=== PATIENT | male | born 1990 | race Caucasian/White ===

== ENCOUNTER 2021-08-20 00:05 | Emergency (ER) | payer MEDICAID ==
[~2021-08-20] VITALS: Ht 172.7 cm; Wt 65.8 kg
[2021-08-20 00:11] VITALS: BP 149/91
--- NOTE | 2021-08-20 00:17 | NUR ---
PATIENT TO [facility] AMBULATORY
--- NOTE | 2021-08-20 01:09 | NUR ---
Nathaniel bond in [facility] - 08/20/21 at [address] Young examining patient.
--- NOTE | 2021-08-20 01:12 | NUR ---
PATIENT CALLED -- NO ANSWER AT THIS TIME
--- NOTE | 2021-08-20 01:12 | NUR ---
PATIENT LEFT WITHOUT BEING SEEN BY DR. MURPHY. NO FURTHER CARE PROVIDED FOR PATIENT.
== END 2021-08-20 01:12 | disposition left against medical advice (07) ==
LOC: MED 00:05
DX: M54.50 Low back pain, unspecified (principal); Z53.21 Procedure and treatment not carried out due to patient leaving prior to being seen by health care provider